=== PATIENT | male | born 1975 | race Two or more races ===

== ENCOUNTER 2017-04-29 00:31 | Inpatient (IN) | payer MEDICAID ==
[~2017-04-29] VITALS: Ht 165.1 cm; Wt 84.4 kg
--- NOTE | 2017-04-29 00:34 | NUR ---
PATIENT WALKED INTO ER STATES HAS NOT HAD DIALYSIS 1 WEEK DUE TO BEING INCARCERATED AND C/O CHEST DISCOMFORT FOR 3 DAYS, PT IS ALERT, ORIENTED X 4, NO RESP DISTRESS NOTED OR REPORTED UPON ASSESSMENT... MD AT BEDSIDE..
[2017-04-29] MEDS ORDERED: IV NORMAL SALINE 500 ML BAG IV ONE (01:00)
--- NOTE | 2017-04-29 01:18 | NUR ---
PATIENT DOSE NOT REMEMBER ANY MEDICATION HE TAKES AT HOME. PATIENT WILL HAVE FAMILY MEMBER BRING BOTTLE SOMETHING TODAY
[2017-04-29 01:31] LABS: BASOPHILS # (AUTO) 0.1 K/uL (0.0-8.0); BASOPHILS % (AUTO) 0.7 % (0.0-2.0); EOSINOPHILS # (AUTO) 0.2 K/uL (0.0-0.7); EOSINOPHILS % (AUTO) 2.2 % (0.0-7.0); HEMATOCRIT 36.9 % (40-50); HEMOGLOBIN 12.5 G/DL (14.0-18.0); LYMPHOCYTES # (AUTO) 1.6 K/UL (0.8-4.8); LYMPHOCYTES % (AUTO) 19.3 % (20.5-51.5); MEAN CORPUSCULAR HEMOGLOBIN 29.1 UUG (27.0-31.0); MEAN CORPUSCULAR HGB CONC 34 g/dL (32.0-37.0); MEAN CORPUSCULAR VOLUME 86.1 FL (82.0-92.0); MONOCYTES # (AUTO) 0.5 K/UL (0.1-1.30); MONOCYTES % (AUTO) 6.5 % (0.0-11.0); NEUTROPHILS # (AUTO) 5.7 K/UL (1.8-8.9); NEUTROPHILS % (AUTO) 71.3 % (38.5-71.5); PLATELET COUNT (AUTO) 269 K/UL (150-450); RED BLOOD CELL COUNT(AUTO) 4.29 MIL/UL (4.7-6.1); WHITE BLOOD COUNT (AUTO) 8.1 K/UL (4.0-11.2)
[2017-04-29 01:32] LABS: BILIRUBIN,DIRECT 0.1 mg/dL (0.0-0.2); BILIRUBIN,TOTAL 0.3 mg/dL (0.2-1.0); CREATININE 4.5 mg/dL (0.6-1.3); POTASSIUM 3.4 mmol/L (3.5-5.1); TOTAL PROTEIN, SERUM 7.3 g/dL (6.4-8.2)
[2017-04-29] MEDS ORDERED: ATOR10TA PO (01:52)
[2017-04-29] MEDS ORDERED: LABE200T PO (01:52)
[2017-04-29] MEDS ORDERED: PANT40TA4 PO (01:52)
[2017-04-29] MEDS ORDERED: FURO40TA5 PO (01:52)
[2017-04-29] MEDS ORDERED: DIPH25CA83 PO (01:52)
[2017-04-29] MEDS ORDERED: FOLI0.8T2 PO (01:52)
[2017-04-29] MEDS ORDERED: BENA20TA2 PO (01:52)
[2017-04-29] MEDS ORDERED: ESCI10TA PO (01:52)
[2017-04-29] MEDS ORDERED: AMLO10TA2 PO (01:52)
[2017-04-29] MEDS ORDERED: NIFEDIPINE PO (01:52)
[2017-04-29] MEDS ORDERED: DOCU100C36 PO (01:52)
[2017-04-29] MEDS ORDERED: ASPI-605 PO (01:52)
--- NOTE | 2017-04-29 01:53 | NUR ---
DAUGHTER CALLED BACK AND GAVE MEDICATION LIST OVER THE PHONE
[2017-04-29 02:00] LABS: *BILIRUBIN,URIN NEGATIVE (NEGATIVE); *BLOOD, URINE Trace-lysed (NEGATIVE); *CLARITY,URINE CLEAR (CLEAR); *COLOR,URINE YELLOW (YELLOW); *KETONES,URINE NEGATIVE (NEGATIVE); *PROTEIN,URINE 3+ (NEGATIVE); *UROBILINOGEN,URINE 0.2 E.U./dl (NORMAL); LEUKOCYTE ESTERASE ,URINE NEGATIVE (NEGATIVE); NITRITE, URINE NEGATIVE (NEGATIVE); UGLUCOSE TRACE (NEGATIVE)
[2017-04-29 02:04] LABS: BACTERIA,URINE FEW /HPF (NONE SEEN); SQUAMOUS EPITHELIAL CELL,UR FEW /HPF (NONE SEEN); WBC,URINE 0-3 /HPF (0-3)
[2017-04-29] MEDS ORDERED: ONDANSETRON 4 MG/2 ML VIAL IV PRN (02:45)
[2017-04-29] MEDS ORDERED: ACETAMINOPHEN 325 MG TABLET PO PRN (02:45)
[2017-04-29] MEDS ORDERED: HYDROCODONE/APAP 5-325MG TABLET PO PRN (02:45)
[2017-04-29] MEDS ORDERED: MAGNESIUM HYDROXIDE 30 ML LIQUID UDC PO PRN (02:45)
[2017-04-29] MEDS ORDERED: Z GUARD REMEDY PASTE 57 GM TUBE TOP PRN (02:45)
[2017-04-29 03:00] VITALS: BP 127/91
[2017-04-29 03:07] VITALS: BP 141/103
--- NOTE | 2017-04-29 03:10 | NUR ---
Pt. admitted to TELEMETRY FROM ER. RESP IS EVEN AND UNLABORED, NO ACUTE DISTRESS. Pt alert, oriented x 4. WITH IV ON L FA, PATENT AND INTACT. PT WITH ADMIT DX OF RENAL FAILURE AND HX OF HTN INSOMNIA, DEPRESSION. CALL LIGHT KEPT WITHIN REACH. WILL CONT TO MONITOR.
--- NOTE | 2017-04-29 03:20 | NUR ---
Pt. admitted to TELEMETRY , under care of Dr. CHANDAN DAVIS, Belongs List completed, Pt alert, oriented x 4, no resp distress noted or reported upon assessment...
[2017-04-29] MEDS ORDERED: ACETAMINOPHEN 325 MG TABLET ONE (04:02)
[2017-04-29] MEDS: IV D5 1/2 NS 1000 ML 1,000 ML IV PRN ×2 (04:18→21:20)
--- NOTE | 2017-04-29 07:09 | NUR ---
RES IN BED, RESP IS EVEN AND UNLABORED. NO RESP DISTRESS. ON TELE MONITORING C SR AT HR OF 74. IV FLUIDS INFUSING WELL ON R AC, SITE IS PATENT AND INTACT. CALL LIGHT KEPT WITHIN REACH. WILL CONT TO MONITOR.
--- NOTE | 2017-04-29 07:38 | NUR ---
TYLENOL WAS ADMINISTERED BY NOC NURSE, REMOVED FROM EMAR NON ADMIN
[2017-04-29] MEDS: PANTOPRAZOLE SODIUM 40 MG TABLET.DR PO SCH (08:17)
[2017-04-29 12:05] VITALS: BP 128/84
[2017-04-29 15:11] VITALS: BP 118/76
[2017-04-29 19:00] VITALS: BP 133/86
--- NOTE | 2017-04-29 19:29 | NUR ---
PT IS LAYING IN BED COMFORTABLY. NO S/S OF RESPIRATORY DISTRESS NOTED. NO PAIN NOTED. ALL SAFETY NEEDS ARE MET. IV INTACT/PATENT.
[2017-04-29 23:55] VITALS: BP 128/82
[2017-04-30 04:00] VITALS: BP 155/112
[2017-04-30 06:36] LABS: BASOPHILS # (AUTO) 0.1 K/uL (0.0-8.0); EOSINOPHILS # (AUTO) 0.3 K/uL (0.0-0.7); EOSINOPHILS % (AUTO) 3.4 % (0.0-7.0); HEMATOCRIT 38.8 % (40-50); HEMOGLOBIN 13.1 G/DL (14.0-18.0); LYMPHOCYTES # (AUTO) 1.9 K/UL (0.8-4.8); LYMPHOCYTES % (AUTO) 24.5 % (20.5-51.5); MEAN CORPUSCULAR HEMOGLOBIN 29.3 UUG (27.0-31.0); MEAN CORPUSCULAR HGB CONC 34 g/dL (32.0-37.0); MEAN CORPUSCULAR VOLUME 87.1 FL (82.0-92.0); MONOCYTES # (AUTO) 0.5 K/UL (0.1-1.30); MONOCYTES % (AUTO) 6.1 % (0.0-11.0); NEUTROPHILS # (AUTO) 4.8 K/UL (1.8-8.9); PLATELET COUNT (AUTO) 258 K/UL (150-450); RED BLOOD CELL COUNT(AUTO) 4.46 MIL/UL (4.7-6.1); WHITE BLOOD COUNT (AUTO) 7.6 K/UL (4.0-11.2)
[2017-04-30] MEDS: PANTOPRAZOLE SODIUM 40 MG TABLET.DR PO SCH (06:40)
--- NOTE | 2017-04-30 06:47 | NUR ---
nsg: pt wants ivf to be d/c. pt food and liquid intake excellent.
[2017-04-30 07:07] LABS: MAGNESIUM 1.8 mg/dL (1.8-2.4); PHOSPHOROUS 4.2 mg/dL (2.5-4.9); POTASSIUM 3.7 mmol/L (3.5-5.1)
[2017-04-30] MEDS ORDERED: AMLODIPINE 10 MG TABLET PO SCH (09:00)
[2017-04-30] MEDS ORDERED: BENAZEPRIL HCL 20 MG TABLET PO SCH (09:00)
[2017-04-30] MEDS ORDERED: ESCITALOPRAM OXALATE 10 MG TABLET PO SCH (09:00)
[2017-04-30] MEDS ORDERED: FUROSEMIDE 40 MG TABLET PO SCH (09:00)
[2017-04-30] MEDS ORDERED: DOCUSATE SODIUM 100 MG CAPSULE PO SCH (09:00)
[2017-04-30] MEDS ORDERED: FOLIC ACID/VITAMIN B COMP W-C TABLET PO SCH (09:00)
[2017-04-30] MEDS ORDERED: PANTOPRAZOLE SODIUM 40 MG TABLET.DR PO SCH (09:00)
[2017-04-30] MEDS ORDERED: ASPIRIN EC 81 MG TABLET.DR PO SCH (09:00)
[2017-04-30] MEDS ORDERED: LABETALOL HCL 200 MG TABLET PO SCH (09:00)
[2017-04-30 11:10] LABS: HEPATITIS A AB, TOTAL Positive (Negative); HEPATITIS B SURFACE AB Reactive (.)
[2017-04-30 11:19] VITALS: BP 135/87
[2017-04-30 15:04] VITALS: BP 101/55
--- NOTE | 2017-04-30 16:25 | NUR ---
PT CONTINUES TO REFUSE IV FLUIDS, INFORMED DR. THOMAS AND [facility]A [place]. OK PER BOTH.
--- NOTE | 2017-04-30 19:15 | NUR ---
UPON SIFT OF CHANGE ROUNDING, PATIENT IS AWAKE IN BED WITH FAMILY AT BEDSIDE. PATIENT IS A/O X4. PATIENT WANTS TO LEAVE AMA. CALLED OUT TO DR. THOMAS THAT PATIENT IS LEAVING AMA AND REFUSING TO STAY. PATIENT DENIES PAIN OR DISCOMFORT. ALL NEEDS ATTENDED. Addendum: 04/30/17 at 2031 by MARIE GONZALEZ LVN time clarification- 1929 and "upon shift report"
--- NOTE | 2017-04-30 19:18 | NUR ---
PT IS LAYING IN BED COMFORTABLY. PT IS CALM, ALERT AND ORIENTED. NO S/S OF RESPIRATORY DISTRESS NOTED. NO PAIN REPORTED. NO S/S OF BLEEDING NOTED. IV INTACT/PATENT. ALL SAFETY NEEDS ARE MET.
--- NOTE | 2017-04-30 20:00 | NUR ---
PATIENT LEFT AMA. DR. THOMAS NOTIFIED. ALL NEEDS ATTENDED.
[2017-04-30] MEDS ORDERED: diphenhydrAMINE 50 MG CAPSULE PO SCH (21:00)
[2017-04-30] MEDS ORDERED: ATORVASTATIN 10 MG TABLET PO SCH (21:00)
[2017-05-01 05:06] LABS: HEPATITIS Be ANTIGEN Negative (Negative)
[2017-05-01] MEDS ORDERED: AMLODIPINE 10 MG TABLET PO SCH (09:00)
[2017-05-01] MEDS ORDERED: NIFEdipine XL 60 MG TABSR PO SCH (09:00)
--- NOTE | 2017-05-04 15:12 | NUR ---
Rich [ ext. [phone]] from [facility] called and stated that they have a dialysis schedule for the patient: Tuesdays, and Saturdays at 4:30 p.m. Spoke to the patient [ ] and he stated that [facility] already called him and he is aware of the schedule.
== END 2017-04-30 19:58 | disposition left against medical advice (07) | DRG 460 ==
LOC: ER 00:36 → TELE 02:14 → MED 04-30 13:32
PROVIDERS: ADMIT Internal Medicine; ATTEND Family Medicine
PROC: 5A1D00Z (ICD-10-PCS; principal; 2017-04-29)
DX: I12.0 Hypertensive chronic kidney disease with stage 5 chronic kidney disease or end stage renal disease (principal); N18.6 End stage renal disease; E78.5 Hyperlipidemia, unspecified; E87.6 Hypokalemia; Z82.49 Family history of ischemic heart disease and other diseases of the circulatory system; Z99.2 Dependence on renal dialysis; Z87.891 Personal history of nicotine dependence; R07.9 Chest pain, unspecified
CPT/HCPCS: 36415; 70030-TC; 71010; 83690; 83735; 84100; 85025; 85730; 86705; 86706; 86708; 86803; 87350; 93005; 93307; A4663; J3490; J7040

== ENCOUNTER 2017-08-19 12:18 | Inpatient (IN) | payer MEDICAID, OTHER ==
[~2017-08-19] VITALS: Ht 165.1 cm; Wt 83.9 kg
[~2017-08-19 12:18] MED LIST: ASPI-605 PO; ATOR10TA PO; BENA20TA2 PO; DIPH25CA83 PO; DOCU100C36 PO; ESCI10TA PO; FOLI0.8T2 PO; FURO40TA5 PO; LABE200T PO; NIFEDIPINE PO; PANT40TA4 PO
--- NOTE | 2017-08-19 12:30 | NUR ---
DR MCCOY AT THE BEDSIDE FOR EVAL AND EXAM.
--- NOTE | 2017-08-19 12:34 | NUR ---
PT STATED THAT HE DOES NOT REMEMBER HIS EXACT HOME MEDICATION NAMES AND DOSAGES. DR MCCOY NOTIFIED.
[2017-08-19 12:58] LABS: CREATININE 4.4 mg/dL (0.6-1.3)
[2017-08-19 13:00] LABS: BASOPHILS % (AUTO) 0.4 % (0.0-2.0); EOSINOPHILS # (AUTO) 0.2 K/uL (0.0-0.7); EOSINOPHILS % (AUTO) 2.6 % (0.0-7.0); HEMATOCRIT 41.8 % (40-50); HEMOGLOBIN 13.9 G/DL (14.0-18.0); LYMPHOCYTES # (AUTO) 1.2 K/UL (0.8-4.8); MEAN CORPUSCULAR HEMOGLOBIN 29.8 UUG (27.0-31.0); MEAN CORPUSCULAR HGB CONC 33 g/dL (32.0-37.0); MEAN CORPUSCULAR VOLUME 89.7 FL (82.0-92.0); MONOCYTES # (AUTO) 0.4 K/UL (0.1-1.30); MONOCYTES % (AUTO) 4.6 % (0.0-11.0); NEUTROPHILS # (AUTO) 6.6 K/UL (1.8-8.9); NEUTROPHILS % (AUTO) 78.4 % (38.5-71.5); PLATELET COUNT (AUTO) 281 K/UL (150-450); RED BLOOD CELL COUNT(AUTO) 4.66 MIL/UL (4.7-6.1); WHITE BLOOD COUNT (AUTO) 8.4 K/UL (4.0-11.2)
[2017-08-19 13:14] LABS: BILIRUBIN,DIRECT 0.1 mg/dL (0.0-0.2); BILIRUBIN,TOTAL 0.3 mg/dL (0.2-1.0); TOTAL PROTEIN, SERUM 7.2 g/dL (6.4-8.2)
[2017-08-19] MEDS ORDERED: ACETAMINOPHEN 325 MG TABLET PO PRN (13:45)
[2017-08-19] MEDS ORDERED: Z GUARD REMEDY PASTE 57 GM TUBE TOP PRN (13:45)
[2017-08-19] MEDS ORDERED: hydrALAZINE HCL 20 MG/1 ML VIAL IV ONE (13:45)
[2017-08-19] MEDS ORDERED: MAGNESIUM HYDROXIDE 30 ML LIQUID UDC PO PRN (13:45)
[2017-08-19] MEDS ORDERED: ONDANSETRON 4 MG/2 ML VIAL IV PRN (13:45)
[2017-08-19] MEDS ORDERED: MORPHINE SULFATE 2 MG/1 ML DISP.SYRIN IV PRN (13:45)
[2017-08-19] MEDS ORDERED: TEMAZEPAM 7.5 MG CAPSULE PO PRN (13:45)
[2017-08-19] MEDS ORDERED: HYDROCODONE/APAP 5-325MG TABLET PO PRN (13:45)
[2017-08-19] MEDS ORDERED: METOPROLOL TARTRATE 5 MG/5 ML VIAL IVP ONE ×2 (13:45→14:03)
[2017-08-19] MEDS ORDERED: hydrALAZINE HCL 20 MG/1 ML VIAL ONE (14:03)
--- NOTE | 2017-08-19 14:04 | NUR ---
[facility] COLLECTED AND SENT TO LAB. BELONGING LIST COMPLETED AND PLACED IN THE CHART.
[2017-08-19] MEDS ORDERED: HYDROMORPHONE 1 MG/1 ML DISP.SYRIN IV PRN (14:45)
--- NOTE | 2017-08-19 14:50 | NUR ---
PATIENT ARRIVED ON TELE UNIT, PATIENT IS AMBULATORY, VITALS RECORDED, AND DIALYSIS STARTED BY DIALYSIS NURSE STEVEN.
[2017-08-19 14:55] VITALS: BP 164/107
--- NOTE | 2017-08-19 16:45 | NUR ---
DIALYSIS COMPLETE, PATIENT TOLERATED WELL. INFORMATION THAT 2 LITERS WERE REMOVED WAS OBTAINED. PATIENT IS IN BED, BED IN LOW POSITION, SIDE RAILS UP X2.
--- NOTE | 2017-08-19 18:53 | NUR ---
PATIENT CONTINUES TO EXPERIENCE MODERATE HEADACHE AFTER TYLENOL GIVEN. PATIENT REPORTED THAT HE WILL TRY TO GET SOME SLEEP, THEN WILL ASK FOR MEDS IF NEEDED LATER. PATIENT IS IN BED, BED IN LOW POSITION, SIDE RAILS UP X2.
--- NOTE | 2017-08-19 19:30 | NUR ---
RECEIVED SHIFT REPORT FROM PREVIOUS SHIFT NURSE. PATIENT WAS ASLEEP. PATIENT INTRODUCTORY INITIATED. PATIENT DOES NOT COMPLAIN OF ANY CHEST PAIN BUT HAS SLIGHT HEADACHE IN WHICH PREVIOUS SHIFT NURSE ADMINISTERED TYLENOL. BED IN LOCKED/LOW POSITION WITH SIDERAILS UP X2. WILL CONTINUE TO MONITOR. SAFETY AND COMFORT WILL BE PROVIDED THROUGHOUT SHIFT.
[2017-08-19 20:00] VITALS: BP 146/100
[2017-08-19 20:38] VITALS: BP 146/100
[2017-08-19] MEDS ORDERED: [UNRECOGNIZED DRUG - REMARK] PO SCH (21:00)
[2017-08-19] MEDS ORDERED: diphenhydrAMINE 50 MG CAPSULE PO SCH (21:00)
[2017-08-19] MEDS ORDERED: LABETALOL HCL 200 MG TABLET PO SCH (21:00)
[2017-08-19] MEDS ORDERED: ATORVASTATIN 10 MG TABLET PO SCH (21:00)
[2017-08-19] MEDS ORDERED: BENAZEPRIL HCL 20 MG TABLET PO SCH (21:00)
--- NOTE | 2017-08-19 22:35 | NUR ---
PATIENT LEFT AGAINST MEDICAL ADVICE. PATIENT VERBALIZED, "I GOT DIALYSIS TODAY, AND I WANT TO LEAVE RIGHT NOW, I CANNOT WAIT UNTIL TOMORROW. INFORMED PATIENT THAT I CANNOT DISCHARGE HIM MYSELF UNLESS I HAVE A DOCTOR'S ORDER, WHICH THE PATIENT DOES NOT HAVE AN ORDER FOR. PATIENT VERBALIZED "BUT I CAN SIGN SOME PAPER TO LEAVE RIGHT". DR. MCCANN INFORMED OF THE SITUATION AND SAID HE CAN LEAVE AGAINST MEDICAL ADVICE. PATIENT IN STABLE CONDITION, NO S/S OF DISTRESS. ID BAND TAKEN OFF OF PATIENT, BELONGINGS CHECKLIST SIGNED, IV TAKEN OUT AND AMA DOCUMENTS SIGNED BY PATIENT.
[2017-08-20] MEDS ORDERED: PANTOPRAZOLE SODIUM 40 MG TABLET.DR PO SCH (07:00)
[2017-08-20] MEDS ORDERED: NIFEdipine XL 60 MG TABSR PO SCH (09:00)
[2017-08-20] MEDS ORDERED: DOCUSATE SODIUM 100 MG CAPSULE PO SCH (09:00)
[2017-08-20] MEDS ORDERED: FOLIC ACID/VITAMIN B COMP W-C TABLET PO SCH (09:00)
[2017-08-20] MEDS ORDERED: ASPIRIN EC 81 MG TABLET.DR PO SCH (09:00)
[2017-08-20] MEDS ORDERED: ESCITALOPRAM OXALATE 10 MG TABLET PO SCH (09:00)
[2017-08-20] MEDS ORDERED: FUROSEMIDE 40 MG TABLET PO SCH (09:00)
== END 2017-08-19 22:35 | disposition left against medical advice (07) | DRG 199 ==
LOC: ER 12:25 → TELE 14:26
PROVIDERS: ADMIT Family Medicine; ATTEND Family Medicine
PROC: 5A1D70Z Performance of Urinary Filtration, Intermittent, Less than 6 Hours Per Day (ICD-10-PCS; principal; 2017-08-19)
DX: I16.0 Hypertensive urgency (principal); N18.6 End stage renal disease; I13.11 Hypertensive heart and chronic kidney disease without heart failure, with stage 5 chronic kidney disease, or end stage renal disease; Z99.2 Dependence on renal dialysis; Z91.15 Patient's noncompliance with renal dialysis; E78.5 Hyperlipidemia, unspecified; Z79.82 Long term (current) use of aspirin; Z79.899 Other long term (current) drug therapy; I25.10 Atherosclerotic heart disease of native coronary artery without angina pectoris; E87.70 Fluid overload, unspecified
CPT/HCPCS: 36415; 70030-TC; 71010; 85025; 85730; 93005; A4663; J0360; J3490

== ENCOUNTER 2017-12-09 03:42 | Emergency (ER) | payer MEDICAID, OTHER ==
[~2017-12-09] VITALS: Ht 165.1 cm; Wt 85.3 kg
[2017-12-09] MEDS ORDERED: CLONIDINE HCL 0.2 MG TABLET PO ONE (04:15)
[2017-12-09] MEDS ORDERED: CLONIDINE HCL 0.2 MG TABLET ONE (04:16)
[2017-12-09] MEDS ORDERED: ONDANSETRON HCL 4 MG TABLET ONE (04:29)
[2017-12-09] MEDS ORDERED: HYDROMORPHONE 4 MG/1 ML DISP.SYRIN ONE (04:29)
[2017-12-09] MEDS ORDERED: HYDROMORPHONE 1 MG/1 ML DISP.SYRIN IM ONE (04:30)
[2017-12-09] MEDS ORDERED: ONDANSETRON ODT 4 MG TAB.RAPDIS SL ONE (04:30)
[2017-12-09] MEDS ORDERED: LABETALOL HCL 100 MG/20 ML VIAL ONE (04:41)
[2017-12-09] MEDS ORDERED: LABETALOL HCL 100 MG/20 ML VIAL IV ONE (04:45)
--- NOTE | 2017-12-09 05:16 | NUR ---
Patient discharged to home in stable conditon. Written and verbal after care instructions given. Patient verbalizes understanding of instructions. Ambulated from Er with stable gait. All belongings with patient. patient will be driven home by his friend in a private vehicle. Peripheral IV removed prior to dischrage.
[2017-12-09 05:17] VITALS: BP 181/120
[2017-12-22] MEDS ORDERED: HYDR-548 PO (14:33)
== END 2017-12-09 05:18 | disposition home or self-care (01) ==
LOC: ER 03:46
DX: H16.8 Other keratitis (principal); I12.0 Hypertensive chronic kidney disease with stage 5 chronic kidney disease or end stage renal disease; N18.6 End stage renal disease; Z79.82 Long term (current) use of aspirin; Z79.899 Other long term (current) drug therapy
CPT/HCPCS: 96372; 96374; 99284; A4663; J1170; J3490; Q0162

== ENCOUNTER 2017-12-19 16:09 | Inpatient (IN) | payer MEDICAID, OTHER ==
[~2017-12-19] VITALS: Ht 165.1 cm; Wt 82.1 kg
[2017-12-19] MEDS ORDERED: HYDROCODONE/APAP 5-325MG TABLET ONE (17:25)
[2017-12-19] MEDS ORDERED: HYDROCODONE/APAP 5-325MG TABLET PO ONE (17:30)
[2017-12-19] MEDS ORDERED: LABE200T PO (18:27)
[2017-12-19] MEDS ORDERED: FURO40TA5 PO (18:27)
[2017-12-19] MEDS ORDERED: FOLI0.8T2 PO (18:27)
[2017-12-19] MEDS ORDERED: ASPI81TA31 PO (18:27)
[2017-12-19] MEDS ORDERED: ESCI10TA PO (18:27)
[2017-12-19] MEDS ORDERED: ATOR10TA PO (18:27)
[2017-12-19] MEDS ORDERED: BENA20TA2 PO (18:27)
[2017-12-19] MEDS ORDERED: PANT40TA4 PO (18:27)
[2017-12-19] MEDS ORDERED: DIPH25CA83 PO (18:27)
[2017-12-19] MEDS ORDERED: DOCU100C36 PO (18:27)
[2017-12-19] MEDS ORDERED: NIFE60TA69 PO (18:27)
[2017-12-19 18:35] LABS: BASOPHILS # (AUTO) 0.1 K/uL (0.0-8.0); BASOPHILS % (AUTO) 0.6 % (0.0-2.0); EOSINOPHILS # (AUTO) 0.2 K/uL (0.0-0.7); EOSINOPHILS % (AUTO) 2.5 % (0.0-7.0); HEMATOCRIT 40.2 % (36.7-47.1); HEMOGLOBIN 13.6 g/dL (12.5-16.3); LYMPHOCYTES # (AUTO) 2.6 K/uL (20.0-40.0); LYMPHOCYTES % (AUTO) 26.9 % (20.5-51.5); MEAN CORPUSCULAR HGB CONC 34 g/dL (32.5-36.3); MEAN CORPUSCULAR VOLUME 88.7 fL (73.0-96.2); MONOCYTES # (AUTO) 0.6 K/uL (2.0-10.0); MONOCYTES % (AUTO) 6.5 % (0.0-11.0); NEUTROPHILS # (AUTO) 6.2 K/uL (1.8-8.9); NEUTROPHILS % (AUTO) 63.5 % (38.5-71.5); PLATELET COUNT (AUTO) 263 K/uL (152-348); RED BLOOD CELL COUNT(AUTO) 4.53 MIL/uL (4.06-5.63); WHITE BLOOD COUNT (AUTO) 9.8 K/uL (3.6-10.2)
[2017-12-19 18:44] LABS: CREATININE 5.2 mg/dL (0.6-1.3); POTASSIUM 4.7 mmol/L (3.5-5.1)
[2017-12-19 18:50] LABS: BILIRUBIN,DIRECT 0.1 mg/dL (0.0-0.2); BILIRUBIN,TOTAL 0.3 mg/dL (0.2-1.0); TOTAL PROTEIN, SERUM 6.9 g/dL (6.4-8.2)
[2017-12-19] MEDS ORDERED: LABETALOL HCL 100 MG/20 ML VIAL IV ONE ×2 (20:00→21:00)
[2017-12-19] MEDS ORDERED: LABETALOL HCL 100 MG/20 ML VIAL ONE ×2 (20:06→20:59)
[2017-12-19] MEDS ORDERED: hydrALAZINE HCL 20 MG/1 ML VIAL ONE (21:29)
[2017-12-19] MEDS ORDERED: ONDANSETRON 4 MG/2 ML VIAL IV PRN (21:30)
[2017-12-19] MEDS ORDERED: HYDROCODONE/APAP 10-325 MG TABLET PO PRN (21:30)
[2017-12-19] MEDS ORDERED: ACETAMINOPHEN 325 MG TABLET PO PRN (21:30)
[2017-12-19] MEDS ORDERED: BENAZEPRIL HCL 20 MG TABLET PO ONE (21:30)
[2017-12-19] MEDS ORDERED: hydrALAZINE HCL 50 MG TABLET PO PRN (21:30)
[2017-12-19] MEDS ORDERED: hydrALAZINE HCL 20 MG/1 ML VIAL IV PRN (21:30)
[2017-12-19] MEDS ORDERED: LABETALOL HCL 200 MG TABLET PO ONE (21:45)
[2017-12-19 22:00] VITALS: BP 156/96
[2017-12-19] MEDS: MORPHINE SULFATE 4 MG/1 ML DISP.SYRIN IV PRN (22:18)
[2017-12-20] VITALS: BP 145/86
[2017-12-20 04:00] VITALS: BP 150/67
[2017-12-20] MEDS: MORPHINE SULFATE 4 MG/1 ML DISP.SYRIN IV PRN (04:19)
[2017-12-20] MEDS: PANTOPRAZOLE SODIUM 40 MG TABLET.DR PO SCH (06:26)
[2017-12-20 06:57] LABS: BASOPHILS # (AUTO) 0.1 K/uL (0.0-8.0); BASOPHILS % (AUTO) 0.5 % (0.0-2.0); EOSINOPHILS # (AUTO) 0.3 K/uL (0.0-0.7); EOSINOPHILS % (AUTO) 2.9 % (0.0-7.0); HEMATOCRIT 38.1 % (36.7-47.1); HEMOGLOBIN 12.8 g/dL (12.5-16.3); LYMPHOCYTES # (AUTO) 2.7 K/uL (20.0-40.0); LYMPHOCYTES % (AUTO) 27.7 % (20.5-51.5); MEAN CORPUSCULAR HEMOGLOBIN 29.7 uug (23.8-33.4); MEAN CORPUSCULAR HGB CONC 34 g/dL (32.5-36.3); MEAN CORPUSCULAR VOLUME 88.8 fL (73.0-96.2); MONOCYTES # (AUTO) 0.7 K/uL (2.0-10.0); MONOCYTES % (AUTO) 7.6 % (0.0-11.0); NEUTROPHILS % (AUTO) 61.3 % (38.5-71.5); PLATELET COUNT (AUTO) 238 K/uL (152-348); RED BLOOD CELL COUNT(AUTO) 4.29 MIL/uL (4.06-5.63); WHITE BLOOD COUNT (AUTO) 9.8 K/uL (3.6-10.2)
[2017-12-20 07:47] LABS: BILIRUBIN,TOTAL 0.2 mg/dL (0.2-1.0); CREATININE 5.1 mg/dL (0.6-1.3); MAGNESIUM 1.9 mg/dL (1.8-2.4); PHOSPHOROUS 4.3 mg/dL (2.5-4.9); POTASSIUM 4.3 mmol/L (3.5-5.1); TOTAL PROTEIN, SERUM 6.1 g/dL (6.4-8.2)
[2017-12-20] MEDS: ASPIRIN 81 MG TAB.CHEW PO SCH (08:57)
[2017-12-20] MEDS: FUROSEMIDE 40 MG TABLET PO SCH (08:57)
[2017-12-20] MEDS: DOCUSATE SODIUM 100 MG CAPSULE PO SCH (08:57)
[2017-12-20] MEDS: ESCITALOPRAM OXALATE 10 MG TABLET PO SCH (08:57)
[2017-12-20] MEDS: BENAZEPRIL HCL 20 MG TABLET PO SCH ×2 (08:57→21:02)
[2017-12-20] MEDS: FOLIC ACID/VITAMIN B COMP W-C TABLET PO SCH (08:57)
[2017-12-20] MEDS: LABETALOL HCL 200 MG TABLET PO SCH ×2 (08:58→17:40)
[2017-12-20] MEDS: NIFEdipine XL 60 MG TABSR PO SCH (08:58)
[2017-12-20] MEDS ORDERED: PANTOPRAZOLE SODIUM 40 MG TABLET.DR PO SCH (09:00)
[2017-12-20 11:30] VITALS: BP 163/100
[2017-12-20] MEDS ORDERED: ALBUTEROL SULFATE 2.5 MG/3 ML NEBU NEB PRN (16:45)
[2017-12-20 20:23] VITALS: BP 115/70
[2017-12-20] MEDS: ATORVASTATIN 10 MG TABLET PO SCH (21:02)
[2017-12-20] MEDS: diphenhydrAMINE 50 MG CAPSULE PO SCH (21:02)
[2017-12-21] MEDS: PANTOPRAZOLE SODIUM 40 MG TABLET.DR PO SCH (05:49)
[2017-12-21] MEDS: MORPHINE SULFATE 4 MG/1 ML DISP.SYRIN IV PRN ×2 (05:49→09:56)
[2017-12-21 06:55] VITALS: BP 153/90
[2017-12-21] MEDS: ESCITALOPRAM OXALATE 10 MG TABLET PO SCH (09:22)
[2017-12-21] MEDS: BENAZEPRIL HCL 20 MG TABLET PO SCH ×2 (09:22→21:00)
[2017-12-21] MEDS: FUROSEMIDE 40 MG TABLET PO SCH (09:22)
[2017-12-21] MEDS: FOLIC ACID/VITAMIN B COMP W-C TABLET PO SCH (09:22)
[2017-12-21] MEDS: NIFEdipine XL 60 MG TABSR PO SCH (09:23)
[2017-12-21] MEDS: LABETALOL HCL 200 MG TABLET PO SCH ×2 (09:23→16:34)
[2017-12-21] MEDS: ASPIRIN 81 MG TAB.CHEW PO SCH (09:23)
[2017-12-21] MEDS: DOCUSATE SODIUM 100 MG CAPSULE PO SCH (09:23)
[2017-12-21 11:50] VITALS: BP 148/100
[2017-12-21 15:13] VITALS: BP 110/60
[2017-12-21 20:00] VITALS: BP 130/81
[2017-12-21] MEDS: ATORVASTATIN 10 MG TABLET PO SCH (21:00)
[2017-12-21] MEDS: diphenhydrAMINE 50 MG CAPSULE PO SCH (21:22)
[2017-12-22] MEDS: MORPHINE SULFATE 4 MG/1 ML DISP.SYRIN IV PRN ×3 (01:13→09:22)
[2017-12-22 04:51] VITALS: BP 144/90
[2017-12-22] MEDS: PANTOPRAZOLE SODIUM 40 MG TABLET.DR PO SCH (06:02)
[2017-12-22 07:02] LABS: BASOPHILS # (AUTO) 0.1 K/uL (0.0-8.0); BASOPHILS % (AUTO) 0.5 % (0.0-2.0); EOSINOPHILS # (AUTO) 0.2 K/uL (0.0-0.7); EOSINOPHILS % (AUTO) 2.6 % (0.0-7.0); HEMATOCRIT 40.2 % (36.7-47.1); HEMOGLOBIN 13.6 g/dL (12.5-16.3); LYMPHOCYTES # (AUTO) 2.2 K/uL (20.0-40.0); LYMPHOCYTES % (AUTO) 23.8 % (20.5-51.5); MEAN CORPUSCULAR HEMOGLOBIN 29.8 uug (23.8-33.4); MEAN CORPUSCULAR HGB CONC 34 g/dL (32.5-36.3); MEAN CORPUSCULAR VOLUME 88.3 fL (73.0-96.2); MONOCYTES # (AUTO) 0.8 K/uL (2.0-10.0); MONOCYTES % (AUTO) 8.3 % (0.0-11.0); NEUTROPHILS % (AUTO) 64.8 % (38.5-71.5); PLATELET COUNT (AUTO) 233 K/uL (152-348); RED BLOOD CELL COUNT(AUTO) 4.55 MIL/uL (4.06-5.63); WHITE BLOOD COUNT (AUTO) 9.3 K/uL (3.6-10.2)
[2017-12-22 07:06] LABS: CREATININE 5.5 mg/dL (0.6-1.3); MAGNESIUM 1.9 mg/dL (1.8-2.4); PHOSPHOROUS 4.8 mg/dL (2.5-4.9); POTASSIUM 4.5 mmol/L (3.5-5.1)
[2017-12-22] MEDS: NIFEdipine XL 60 MG TABSR PO SCH (09:00)
[2017-12-22] MEDS: LABETALOL HCL 200 MG TABLET PO SCH (09:00)
[2017-12-22] MEDS: BENAZEPRIL HCL 20 MG TABLET PO SCH (09:00)
[2017-12-22] MEDS: FUROSEMIDE 40 MG TABLET PO SCH (09:00)
[2017-12-22] MEDS: ASPIRIN 81 MG TAB.CHEW PO SCH (09:17)
[2017-12-22] MEDS: DOCUSATE SODIUM 100 MG CAPSULE PO SCH (09:17)
[2017-12-22] MEDS: ESCITALOPRAM OXALATE 10 MG TABLET PO SCH (09:18)
[2017-12-22] MEDS: FOLIC ACID/VITAMIN B COMP W-C TABLET PO SCH (09:18)
[2017-12-22 11:24] VITALS: BP 137/86
[2017-12-22] MEDS ORDERED: HYDR-548 PO (14:33)
[2017-12-22 15:21] VITALS: BP 141/90
[2017-12-24 00:14] LABS: *GC NAA Negative (Negative); *TRIC.VAG. NAA Negative (Negative)
== END 2017-12-22 16:05 | disposition home or self-care (01) | DRG 384 ==
LOC: ER 16:19 → MED 20:57 → TELE 21:45 → MED 12-20 09:17
PROVIDERS: ADMIT Internal Medicine; ATTEND Internal Medicine
PROC: 5A1D70Z Performance of Urinary Filtration, Intermittent, Less than 6 Hours Per Day (ICD-10-PCS; principal; 2017-12-20)
DX: S70.02XA Contusion of left hip, initial encounter (principal); I12.0 Hypertensive chronic kidney disease with stage 5 chronic kidney disease or end stage renal disease; N18.6 End stage renal disease; M79.652 Pain in left thigh; W01.0XXA Fall on same level from slipping, tripping and stumbling without subsequent striking against object, initial encounter; Y92.89 Other specified places as the place of occurrence of the external cause; Z99.2 Dependence on renal dialysis; R36.1 Hematospermia; Z74.09 Other reduced mobility; E78.5 Hyperlipidemia, unspecified; E66.9 Obesity, unspecified; Z68.30 Body mass index [BMI] 30.0-30.9, adult; Z79.82 Long term (current) use of aspirin; Z79.899 Other long term (current) drug therapy; M89.9 Disorder of bone, unspecified; F32.9 Major depressive disorder, single episode, unspecified; R74.8 Abnormal levels of other serum enzymes; R26.2 Difficulty in walking, not elsewhere classified; D64.9 Anemia, unspecified
CPT/HCPCS: 36415; 70030-TC; 71045; 73502; 73551; 73700; 83735; 84100; 85025; 85730; 87491; 93005; A4663; J0360; J2270; J3490; Q0163

== ENCOUNTER 2018-04-02 00:14 | Inpatient (IN) | payer MEDICAID ==
[~2018-04-02] VITALS: Ht 167.6 cm; Wt 83.0 kg
[~2018-04-02 00:14] MED LIST changes: -ASPI-605 PO; +ASPI81TA31 PO; +HYDR-548 PO; +NIFE60TA69 PO; -NIFEDIPINE PO
[2018-04-02] MEDS ORDERED: LABETALOL HCL 100 MG/20 ML VIAL IV ONE ×3 (00:45→01:30)
[2018-04-02 00:50] LABS: CREATININE 4.8 mg/dL (0.6-1.3); POTASSIUM 4.5 mmol/L (3.5-5.1)
[2018-04-02] MEDS ORDERED: LABETALOL HCL 100 MG/20 ML VIAL ONE (00:52)
[2018-04-02 00:53] LABS: BASOPHILS # (AUTO) 0.1 K/uL (0.0-8.0); BASOPHILS % (AUTO) 0.9 % (0.0-2.0); EOSINOPHILS # (AUTO) 0.3 K/uL (0.0-0.7); EOSINOPHILS % (AUTO) 3.5 % (0.0-7.0); HEMATOCRIT 41.6 % (36.7-47.1); HEMOGLOBIN 14.7 g/dL (12.5-16.3); LYMPHOCYTES # (AUTO) 2.3 K/uL (20.0-40.0); LYMPHOCYTES % (AUTO) 27.5 % (20.5-51.5); MEAN CORPUSCULAR HEMOGLOBIN 31.7 uug (23.8-33.4); MEAN CORPUSCULAR HGB CONC 35 g/dL (32.5-36.3); MONOCYTES # (AUTO) 0.7 K/uL (2.0-10.0); MONOCYTES % (AUTO) 8.3 % (0.0-11.0); NEUTROPHILS # (AUTO) 4.9 K/uL (1.8-8.9); NEUTROPHILS % (AUTO) 59.8 % (38.5-71.5); PLATELET COUNT (AUTO) 310 K/uL (152-348); RED BLOOD CELL COUNT(AUTO) 4.63 MIL/uL (4.06-5.63); WHITE BLOOD COUNT (AUTO) 8.2 K/uL (3.6-10.2)
[2018-04-02 01:04] LABS: BILIRUBIN,DIRECT 0.1 mg/dL (0.0-0.2); BILIRUBIN,TOTAL 0.3 mg/dL (0.2-1.0); TOTAL PROTEIN, SERUM 6.8 g/dL (6.4-8.2)
[2018-04-02] MEDS ORDERED: ALPR1TAB7 PO (01:12)
--- NOTE | 2018-04-02 01:40 | NUR ---
PAGED EPPIC PANEL DR MCCOY REQUESTED. WAITING FOR WM REINOSO NP TO CALL BACK
--- NOTE | 2018-04-02 01:56 | NUR ---
SIOMARA MD on phone with panel .
[2018-04-02] MEDS ORDERED: hydrALAZINE HCL 20 MG/1 ML VIAL IV ONE (02:00)
--- NOTE | 2018-04-02 02:00 | NUR ---
Report given to Dejan WALLS on Telemetry
[2018-04-02] MEDS ORDERED: hydrALAZINE HCL 20 MG/1 ML VIAL ONE ×2 (02:04→02:25)
[2018-04-02] MEDS ORDERED: hydrALAZINE HCL 20 MG/1 ML VIAL IV STA (02:21)
[2018-04-02] MEDS ORDERED: LABETALOL HCL 100 MG/20 ML VIAL IV STA (02:21)
[2018-04-02] MEDS ORDERED: Z GUARD REMEDY PASTE 57 GM TUBE TOP PRN (02:30)
[2018-04-02] MEDS ORDERED: MAGNESIUM HYDROXIDE 30 ML LIQUID UDC PO PRN (02:30)
[2018-04-02] MEDS ORDERED: ONDANSETRON 4 MG/2 ML VIAL IV PRN (02:30)
[2018-04-02] MEDS ORDERED: HYDROCODONE/APAP 5-325MG TABLET PO PRN (02:30)
--- NOTE | 2018-04-02 02:40 | NUR ---
IN FROM ER VIA [facility], 42 YEAR OLD MALE, ADMITTED TO TELEMETRY, DX OF HYPERTENSIVE URGENCY. HEAD GRINDER APPLIED - ON SINUS RHYTHM WITH HR OF 87. PATIENT ORIENTED X3. NO SOB AND DENIES CHEST PAIN. INITIAL ASSESSMENT DONE. HISTORY PROVIDED BY PATIENT. IVF ON RIGHT AC, PATENT AND INTACT. PERMACATH PRESENT ON R UPPER CHEST. SAFETY MEASURES INITIATED. PLACED CALL LIGHT WITHIN REACH. WILL CONTINUE TO MONITOR.
--- NOTE | 2018-04-02 02:43 | NUR ---
Pt. admitted to Telemetry , under care of Gurpreet Taipa DATABASE MARKETING SPECIALIST Belongs List completed
[2018-04-02 03:00] VITALS: BP 149/77
[2018-04-02] MEDS: PANTOPRAZOLE SODIUM 40 MG TABLET.DR PO SCH (05:53)
--- NOTE | 2018-04-02 07:00 | NUR ---
RECEIVED PATIENT AWAKE AND VERBALLY RESPONSIVE WITH ON GOING HD TOLERATING FAIRLY. CLOSELY OBSERVE
--- NOTE | 2018-04-02 07:25 | NUR ---
PATIENT REMAINED RESTED AND COMFORTABLE. ON TELE SINUS RHYTHM WITH HR OF 84. NO SIGN OF RESPIRATORY DISTRESS.
--- NOTE | 2018-04-02 08:00 | NUR ---
hemodialysis completed patient tolerated well
[2018-04-02] MEDS ORDERED: ALTEPLASE 2 MG VIAL IVP ONE (08:15)
[2018-04-02] MEDS: LABETALOL HCL 200 MG TABLET PO SCH ×2 (08:49→16:35)
[2018-04-02] MEDS: BENAZEPRIL HCL 20 MG TABLET PO SCH ×2 (08:49→16:34)
[2018-04-02] MEDS: FOLIC ACID/VITAMIN B COMP W-C TABLET PO SCH (08:49)
[2018-04-02] MEDS: DOCUSATE SODIUM 100 MG CAPSULE PO SCH (08:50)
[2018-04-02] MEDS: NIFEdipine XL 60 MG TABSR PO SCH (08:50)
[2018-04-02] MEDS: ESCITALOPRAM OXALATE 10 MG TABLET PO SCH (08:50)
[2018-04-02] MEDS ORDERED: PANTOPRAZOLE SODIUM 40 MG TABLET.DR PO SCH (09:00)
[2018-04-02] MEDS: ASPIRIN 81 MG TAB.CHEW PO SCH (10:18)
[2018-04-02] MEDS: ACETAMINOPHEN 325 MG TABLET PO PRN (11:05)
[2018-04-02] MEDS ORDERED: MORPHINE SULFATE 2 MG/1 ML DISP.SYRIN IV PRN (11:15)
[2018-04-02 11:32] VITALS: BP 144/90
[2018-04-02] MEDS: MORPHINE SULFATE 4 MG/1 ML DISP.SYRIN IV PRN ×2 (11:40→16:35)
--- NOTE | 2018-04-02 12:00 | NUR ---
RESTING IN ROOM MOST OF THE TIME NO SOB BUT C/O DUNAWAY. PRN MORPHINE GIVEN WITH TEMPORARY RELIEF. VOMITED X1 RELIVED WITH ZOFRAN. SR ON MONITOR
[2018-04-02 15:34] VITALS: BP 131/84
--- NOTE | 2018-04-02 18:21 | NUR ---
CONTINUE WITH PAIN MANAGEMENT. C/O DUNAWAY RELIEVED WITH MORPHINE
[2018-04-02 19:00] VITALS: BP 118/74
[2018-04-02] MEDS: diphenhydrAMINE 50 MG CAPSULE PO SCH (20:54)
[2018-04-02] MEDS: ATORVASTATIN 10 MG TABLET PO SCH ×2 (20:55→20:56)
[2018-04-02] MEDS ORDERED: [UNRECOGNIZED DRUG - REMARK] PO SCH (21:00)
[2018-04-03] VITALS: BP 114/68
[2018-04-03 04:00] VITALS: BP 120/68
--- NOTE | 2018-04-03 06:33 | NUR ---
PT SLEPT INTERMITTENTLY THROUGH THE NIGHT AND WAS EASILY AWOKEN, PT COMPLAINED OF PAIN AT START OF SHIFT, PAIN MEDICATION HAD RECENTLY GIVEN, PT DENIED HAVING ANY CHEST PAIN, STILL HAD SLIGHT HEADACHE BUT NO PAIN MEDICATION REQUESTED. PT DENIES HAVING ANY DIFFICULTY BREATHING. ALL NEEDS MET, SAFETY MEASURES ARE IN PLACE, CALL LIGHT WITHIN REACH.
[2018-04-03] MEDS: PANTOPRAZOLE SODIUM 40 MG TABLET.DR PO SCH (06:55)
[2018-04-03] MEDS: DOCUSATE SODIUM 100 MG CAPSULE PO SCH (08:21)
[2018-04-03] MEDS: ASPIRIN 81 MG TAB.CHEW PO SCH (08:22)
[2018-04-03] MEDS: NIFEdipine XL 60 MG TABSR PO SCH (08:22)
[2018-04-03] MEDS: FOLIC ACID/VITAMIN B COMP W-C TABLET PO SCH (08:22)
[2018-04-03] MEDS: BENAZEPRIL HCL 20 MG TABLET PO SCH ×2 (08:22→16:11)
[2018-04-03] MEDS: ESCITALOPRAM OXALATE 10 MG TABLET PO SCH (08:23)
[2018-04-03] MEDS: LABETALOL HCL 200 MG TABLET PO SCH ×2 (08:23→16:11)
--- NOTE | 2018-04-03 09:15 | NUR ---
HEMODIALYSIS STARTED AT BEDSIDE BY HD NURSE CLOSELY MONITORED
[2018-04-03 09:31] LABS: BASOPHILS # (AUTO) 0.1 K/uL (0.0-8.0); EOSINOPHILS # (AUTO) 0.3 K/uL (0.0-0.7); EOSINOPHILS % (AUTO) 3.8 % (0.0-7.0); HEMATOCRIT 37.6 % (36.7-47.1); HEMOGLOBIN 12.8 g/dL (12.5-16.3); LYMPHOCYTES # (AUTO) 2.2 K/uL (20.0-40.0); LYMPHOCYTES % (AUTO) 26.9 % (20.5-51.5); MEAN CORPUSCULAR HEMOGLOBIN 31.3 uug (23.8-33.4); MEAN CORPUSCULAR HGB CONC 34 g/dL (32.5-36.3); MEAN CORPUSCULAR VOLUME 91.6 fL (73.0-96.2); MONOCYTES # (AUTO) 0.5 K/uL (2.0-10.0); MONOCYTES % (AUTO) 6.5 % (0.0-11.0); NEUTROPHILS # (AUTO) 5.1 K/uL (1.8-8.9); NEUTROPHILS % (AUTO) 61.8 % (38.5-71.5); PLATELET COUNT (AUTO) 273 K/uL (152-348); WHITE BLOOD COUNT (AUTO) 8.3 K/uL (3.6-10.2)
[2018-04-03 09:41] LABS: CREATININE 5.2 mg/dL (0.6-1.3); MAGNESIUM 1.7 mg/dL (1.8-2.4); POTASSIUM 4.1 mmol/L (3.5-5.1)
[2018-04-03 10:04] LABS: THYROID STIMULATING HORMONE 0.895 mIU/mL (0.358-3.740)
--- NOTE | 2018-04-03 11:15 | NUR ---
HD COMPLETED PATIENT TOLERATED WELL
[2018-04-03 11:46] VITALS: BP 111/66
--- NOTE | 2018-04-03 12:13 | NUR ---
RESTING COMFORTABLY IN BED NO SIGNS OF PAIN OR DISTRESS
[2018-04-03] MEDS: ACETAMINOPHEN 325 MG TABLET PO PRN (16:12)
[2018-04-03 16:14] VITALS: BP 117/69
--- NOTE | 2018-04-03 18:51 | NUR ---
NO ACUTE CHANGE DENIES PAIN OR SOB
[2018-04-03 19:00] VITALS: BP 124/67
--- NOTE | 2018-04-03 19:30 | NUR ---
PT IN ROOM ALERT AWAKE IN NO ACUTE DISTRESS. ABLE TO MAKE NEEDS KNOWN. DENIES ANY PAIN OR SOB. NO C/O HEADACHES OR DISCOMFORT. STATES HE DOES NOT WANT HIS ROUTINE BENADRYL HS. SUPERINTENDENT BOARD MILL SINUS RHYTHM WITH HR 76 BPM. CALL LIGHT WITHIN REACH. WILL CONTINUE TO MONITOR.
[2018-04-03] MEDS: diphenhydrAMINE 50 MG CAPSULE PO SCH (20:32)
[2018-04-04] VITALS: BP 144/81
--- NOTE | 2018-04-04 01:30 | NUR ---
PT ASLEEP AT THIS TIME. SINUS RHYTHM NOTED ON TYPESETTING SUPERVISOR. WILL CONTINUE TO MONITOR.
[2018-04-04 04:00] VITALS: BP 150/91
--- NOTE | 2018-04-04 06:00 | NUR ---
PT IN ROOM ABLE TO SLEEP WITHOUT DIFFICULTY OVERNIGHT. NO C/O ANY PAIN OR DISCOMFORT. NO EPISODES OF HEADACHES OR DIZZINESS. ABLE TO MAKE NEEDS KNOWN. BP 150/91. REFUSING LAB DRAWS THIS AM AND STATES HE WANTS HIS MORNING MEDS AND BLOOD DRAWN TOWARDS BREAKFAST. WILL CONTINUE TO MONITOR. CALL LIGHT PLACED WITHIN REACH. EXPERIMENTAL PHYSICIST SHOWING SINUS RHYTHM.
[2018-04-04] MEDS: ESCITALOPRAM OXALATE 10 MG TABLET PO SCH (08:02)
[2018-04-04] MEDS: FOLIC ACID/VITAMIN B COMP W-C TABLET PO SCH (08:02)
[2018-04-04] MEDS: DOCUSATE SODIUM 100 MG CAPSULE PO SCH (08:02)
[2018-04-04] MEDS: BENAZEPRIL HCL 20 MG TABLET PO SCH (08:03)
[2018-04-04] MEDS: LABETALOL HCL 200 MG TABLET PO SCH (08:03)
[2018-04-04] MEDS: ASPIRIN 81 MG TAB.CHEW PO SCH (08:03)
[2018-04-04 11:38] VITALS: BP 127/73
[2018-04-04] MEDS: PANTOPRAZOLE SODIUM 40 MG TABLET.DR PO SCH (11:48)
--- NOTE | 2018-04-04 13:28 | NUR ---
DISCHARGE INSTRUCTIONS GIVEN TO PATIENT. Pt verbalized understanding. Pt is no acute distress. Pt to f/u with PMD within 1 week and f/u with his vaccinations. Discussed home medications and it's side effects. IV d/c. Pt signed valuables.
== END 2018-04-04 13:30 | disposition home or self-care (01) | DRG 199 ==
LOC: ER 00:18 → TELE 02:00 → MED 04-04 10:00
PROVIDERS: ADMIT Registered Nurse; ATTEND Nurse Practitioner Acute Care
PROC: 5A1D70Z Performance of Urinary Filtration, Intermittent, Less than 6 Hours Per Day (ICD-10-PCS; principal; 2018-04-02)
DX: I16.0 Hypertensive urgency (principal); I21.A1 Myocardial infarction type 2; N18.6 End stage renal disease; N25.0 Renal osteodystrophy; E44.1 Mild protein-calorie malnutrition; I13.11 Hypertensive heart and chronic kidney disease without heart failure, with stage 5 chronic kidney disease, or end stage renal disease; Z99.2 Dependence on renal dialysis; Z91.15 Patient's noncompliance with renal dialysis; Z79.82 Long term (current) use of aspirin; Z79.899 Other long term (current) drug therapy; F17.210 Nicotine dependence, cigarettes, uncomplicated; E78.5 Hyperlipidemia, unspecified; Z68.29 Body mass index [BMI] 29.0-29.9, adult; Z59.0 Homelessness; F32.9 Major depressive disorder, single episode, unspecified; E66.9 Obesity, unspecified; D64.9 Anemia, unspecified
CPT/HCPCS: 36415; 70030-TC; 71045; 83605; 83735; 84100; 84443; 85018; 85025; 85730; 87040; 93005; 93307; A4663; J0360; J2270; J2405; J2997; J3490; Q0163

== ENCOUNTER 2018-04-19 10:11 | Inpatient (IN) | payer MEDICAID ==
[~2018-04-19] VITALS: Ht 165.1 cm; Wt 80.3 kg
[~2018-04-19 10:11] MED LIST changes: +ALPR1TAB7 PO; -ATOR10TA PO; -BENA20TA2 PO; +BENA20TA9 PO; -FURO40TA5 PO; -LABE200T PO; +LABE200T5 PO; -NIFE60TA69 PO
--- NOTE | 2018-04-19 10:25 | NUR ---
PT.C/O ON CHEST PAIN FOR LAST 5 HR.TOLD THAT SKIP HD FOR 1 WEAK.WAS SEEN BY WITH NEW ORDERS.
[2018-04-19] MEDS ORDERED: CALCIUM CHLORIDE 1 GM/10 ML DISP.SYRIN IVP ONE ×2 (10:30→10:34)
[2018-04-19] MEDS ORDERED: ASPIRIN 325 MG TABLET PO ONE (10:30)
[2018-04-19] MEDS ORDERED: NITROGLYCERIN 0.4 MG/TAB BOTTLE SL ONE ×2 (10:30→10:34)
[2018-04-19] MEDS ORDERED: ASPIRIN 325 MG TABLET ONE (10:34)
[2018-04-19] MEDS ORDERED: ONDANSETRON 4 MG/2 ML VIAL ONE (10:38)
[2018-04-19] MEDS ORDERED: ONDANSETRON 4 MG/2 ML VIAL IV ONE (10:45)
[2018-04-19 10:49] LABS: BASOPHILS # (AUTO) 0.1 K/uL (0.0-8.0); BASOPHILS % (AUTO) 1.1 % (0.0-2.0); EOSINOPHILS # (AUTO) 0.1 K/uL (0.0-0.7); EOSINOPHILS % (AUTO) 1.2 % (0.0-7.0); HEMATOCRIT 31.3 % (36.7-47.1); HEMOGLOBIN 10.6 g/dL (12.5-16.3); LYMPHOCYTES # (AUTO) 1.6 K/uL (20.0-40.0); LYMPHOCYTES % (AUTO) 13.3 % (20.5-51.5); MEAN CORPUSCULAR HEMOGLOBIN 30.8 uug (23.8-33.4); MEAN CORPUSCULAR HGB CONC 34 g/dL (32.5-36.3); MEAN CORPUSCULAR VOLUME 91.1 fL (73.0-96.2); MONOCYTES # (AUTO) 0.9 K/uL (2.0-10.0); MONOCYTES % (AUTO) 7.1 % (0.0-11.0); NEUTROPHILS # (AUTO) 9.5 K/uL (1.8-8.9); NEUTROPHILS % (AUTO) 77.3 % (38.5-71.5); PLATELET COUNT (AUTO) 549 K/uL (152-348); RED BLOOD CELL COUNT(AUTO) 3.44 MIL/uL (4.06-5.63); WHITE BLOOD COUNT (AUTO) 12.3 K/uL (3.6-10.2)
--- NOTE | 2018-04-19 10:54 | NUR ---
FAMILY AT BEDSIDE,UPDATED WITH PT.CONDITION AND PLAN OF CARE,PT.DENIES ANY SOB OR CHEST PAIN AT PRESENT TIME.
[2018-04-19 10:59] LABS: POTASSIUM 5.8 mmol/L (3.5-5.1)
[2018-04-19 11:11] LABS: BILIRUBIN,DIRECT 0.1 mg/dL (0.0-0.2); BILIRUBIN,TOTAL 0.4 mg/dL (0.2-1.0); TOTAL PROTEIN, SERUM 7.7 g/dL (6.4-8.2)
--- NOTE | 2018-04-19 11:20 | NUR ---
CALL BACK WITH ORDER TO ADMIT PT.TO TELE.
--- NOTE | 2018-04-19 11:51 | NUR ---
SBAR REPORT GIVEN TO COLLIN/RN.
--- NOTE | 2018-04-19 12:18 | NUR ---
Received pt via madhavi accompanied by ER nurse.
[2018-04-19 12:50] VITALS: BP 146/91
--- NOTE | 2018-04-19 13:31 | NUR ---
Admitting Dr aware of pt.'s arrival to the tele/Med-Surg unit, waiting for orders
--- NOTE | 2018-04-19 15:27 | NUR ---
Second call placed for admitting orders to the office of Dr Saucedo. Waiting for orders
[2018-04-19 15:47] VITALS: BP 144/87
--- NOTE | 2018-04-19 16:15 | NUR ---
Dr Saucedo called back and stated pt is EPIC, called Dr Mendoza and will sampler pickup the pt. Waiting for orders
[2018-04-19] MEDS: BENAZEPRIL HCL 20 MG TABLET PO SCH (17:45)
[2018-04-19] MEDS ORDERED: HYDROCODONE/APAP 10-325 MG TABLET PO PRN (17:45)
[2018-04-19] MEDS ORDERED: Medication Not On Formulary EA (Alprazolam (Xanax) 1 MG) PO PRN (17:45)
--- NOTE | 2018-04-19 17:55 | NUR ---
Pt is about to get dialysis. Scheduled BP Meds will be held
[2018-04-19] MEDS ORDERED: NITROGLYCERIN 0.4 MG/TAB BOTTLE SL PRN (18:00)
[2018-04-19] MEDS ORDERED: ACETAMINOPHEN 325 MG TABLET PO PRN (18:00)
[2018-04-19] MEDS ORDERED: ONDANSETRON 4 MG/2 ML VIAL IV PRN (18:00)
--- NOTE | 2018-04-19 18:53 | NUR ---
Lotensin not given. Pt is getting dialysis
--- NOTE | 2018-04-19 19:07 | NUR ---
Orders placed by Dr. Mendoza. Pt has been compliant with nursing care. Pt is on dialysis right now. No immediate s/s of SOB, or distress.
--- NOTE | 2018-04-19 20:00 | NUR ---
PATIENT IS AWAKE IN BED, AAOX3 CURRENTLY GETTING DIALYSIS. DENIES PAIN OR ANY DISTRESS AT PRESENT. SAFETY MEASURES IN PLACE, CALL LIGHT LEFT WITHIN PATIENT'S REACH.
--- NOTE | 2018-04-19 20:15 | NUR ---
DIALYSIS COMPLETE WITH 2 LITERS OUTPUT
[2018-04-19] MEDS: DOCUSATE SODIUM 100 MG CAPSULE PO SCH (20:18)
[2018-04-19] MEDS: diphenhydrAMINE 50 MG CAPSULE PO SCH (20:18)
[2018-04-19] MEDS: LABETALOL HCL 200 MG TABLET PO SCH (20:19)
[2018-04-19] MEDS ORDERED: CLONIDINE HCL 0.1 MG TABLET PO PRN (20:30)
[2018-04-19] MEDS ORDERED: [UNRECOGNIZED DRUG - REMARK] PO SCH (21:00)
[2018-04-20] VITALS: BP 141/95
[2018-04-20] MEDS: MORPHINE SULFATE 2 MG/1 ML DISP.SYRIN IV PRN (00:36)
[2018-04-20 04:00] VITALS: BP 163/111
[2018-04-20] MEDS: PANTOPRAZOLE SODIUM 40 MG TABLET.DR PO SCH (06:14)
[2018-04-20] MEDS: ALPRAZOLAM 0.5 MG TABLET PO PRN ×2 (06:15→19:45)
--- NOTE | 2018-04-20 06:35 | NUR ---
PATIENT SLEPT WELL MOST OF THE SHIFT, DENIES PAIN OR ANY DISTRESS AT PRESENT. PRN BP MEDS GIVEN ORDERED. PATIENT REFUSING LAB TO DRAW HIS BLOOD STATING THAT DIALYSIS NURSE TOLD HIM BLOOD WILL BE DRAW FROM HIS PERMACATH. EXPLAINED TO PATIENT THAT WE NEED MD ORDERS TO DRAW BLOOD FROM HIS PERMACATH .SAFETY MEASURES MAINTAINED AT ALL TIMES. CALL LIGHT LEFT WITHIN PATIENT'S REACH
[2018-04-20 06:57] LABS: BASOPHILS # (AUTO) 0.2 K/uL (0.0-8.0); BASOPHILS % (AUTO) 1.8 % (0.0-2.0); EOSINOPHILS # (AUTO) 0.1 K/uL (0.0-0.7); EOSINOPHILS % (AUTO) 1.8 % (0.0-7.0); HEMATOCRIT 30.4 % (36.7-47.1); HEMOGLOBIN 10.6 g/dL (12.5-16.3); LYMPHOCYTES # (AUTO) 1.8 K/uL (20.0-40.0); LYMPHOCYTES % (AUTO) 22.4 % (20.5-51.5); MEAN CORPUSCULAR HEMOGLOBIN 31.3 uug (23.8-33.4); MEAN CORPUSCULAR HGB CONC 35 g/dL (32.5-36.3); MONOCYTES # (AUTO) 0.8 K/uL (2.0-10.0); MONOCYTES % (AUTO) 9.3 % (0.0-11.0); NEUTROPHILS # (AUTO) 5.3 K/uL (1.8-8.9); NEUTROPHILS % (AUTO) 64.7 % (38.5-71.5); PLATELET COUNT (AUTO) 513 K/uL (152-348); RED BLOOD CELL COUNT(AUTO) 3.38 MIL/uL (4.06-5.63)
[2018-04-20 06:58] LABS: BILIRUBIN,TOTAL 0.4 mg/dL (0.2-1.0); CREATININE 7.3 mg/dL (0.6-1.3); MAGNESIUM 1.9 mg/dL (1.8-2.4); PHOSPHOROUS 7.5 mg/dL (2.5-4.9); POTASSIUM 5.1 mmol/L (3.5-5.1); TOTAL PROTEIN, SERUM 7.2 g/dL (6.4-8.2)
[2018-04-20 07:09] LABS: WHITE BLOOD COUNT (AUTO) 8.2 K/uL (3.6-10.2)
[2018-04-20 07:14] LABS: THYROID STIMULATING HORMONE 0.487 mIU/mL (0.358-3.740)
--- NOTE | 2018-04-20 07:43 | NUR ---
RECEIVED PT ASLEEP IN BED. NO SIGNS OF RESPIRATORY DISTRESS NOTED. SAFETY MEASURES INITIATED. KEPT CALL LIGHT WITHIN REACH. WILL CONTINUE TO MONITOR.
[2018-04-20] MEDS: ASPIRIN 81 MG TAB.CHEW PO SCH (09:01)
[2018-04-20] MEDS: FOLIC ACID/VITAMIN B COMP W-C TABLET PO SCH (09:01)
[2018-04-20] MEDS: BENAZEPRIL HCL 20 MG TABLET PO SCH ×2 (09:05→17:49)
[2018-04-20] MEDS: LABETALOL HCL 200 MG TABLET PO SCH ×2 (09:06→21:48)
[2018-04-20] MEDS: ESCITALOPRAM OXALATE 10 MG TABLET PO SCH (09:06)
[2018-04-20 11:10] VITALS: BP 154/97
[2018-04-20 15:10] VITALS: BP 154/92
--- NOTE | 2018-04-20 18:30 | NUR ---
Pt tolerated dialysis. PT had 2 liters out per dialysis nurse. Pt is in no acute distress.
[2018-04-20 19:00] VITALS: BP 111/70
--- NOTE | 2018-04-20 21:00 | NUR ---
PATIENT ALERT ORIENTED, NO SOB NO CHEST PAIN, WITH EPISODES OF ANXIETY, MEDICATED ORDERED, AND PATIENT REQUEST. WITH NO ADVERSE REACTION NOTED, R CHEST MIGUEL ANGEL CATH PATENT, DRESSING INTACT, NO BLEEDING NOTED.CONT TO MONITOR, KEPT COMFORTABLE.
[2018-04-20] MEDS: diphenhydrAMINE 50 MG CAPSULE PO SCH (21:47)
[2018-04-20] MEDS: DOCUSATE SODIUM 100 MG CAPSULE PO SCH (21:47)
[2018-04-21] VITALS: BP 143/89
[2018-04-21] MEDS: MORPHINE SULFATE 2 MG/1 ML DISP.SYRIN IV PRN ×2 (00:57→10:39)
[2018-04-21 04:00] VITALS: BP 144/96
[2018-04-21] MEDS: ALPRAZOLAM 0.5 MG TABLET PO PRN (04:11)
[2018-04-21] MEDS: PANTOPRAZOLE SODIUM 40 MG TABLET.DR PO SCH (06:00)
--- NOTE | 2018-04-21 06:16 | NUR ---
PATIENT SLEPT MOST OF THE THE NIGHT NO SOB NO CHEST PAIN NOTED, RYTHM SINUS RYTHM, WITH X2 PVC EPISODES BUT ASYMPTOMATIC, CONT ON PAIN MANAGEMENT, CONT TO MONITOR.
--- NOTE | 2018-04-21 08:30 | NUR ---
Patient education/teachings provided regarding blood pressure medications, monitoring blood pressure before taking medications. Patient verbalized understanding.
[2018-04-21 08:40] VITALS: BP 135/88
[2018-04-21] MEDS: LABETALOL HCL 200 MG TABLET PO SCH ×2 (08:57→21:03)
[2018-04-21] MEDS: ESCITALOPRAM OXALATE 10 MG TABLET PO SCH (08:57)
[2018-04-21] MEDS: FOLIC ACID/VITAMIN B COMP W-C TABLET PO SCH (08:57)
[2018-04-21] MEDS: ASPIRIN 81 MG TAB.CHEW PO SCH (08:57)
[2018-04-21] MEDS: BENAZEPRIL HCL 20 MG TABLET PO SCH ×2 (08:58→16:56)
[2018-04-21 11:50] VITALS: BP 135/83
[2018-04-21 15:21] VITALS: BP 127/81
--- NOTE | 2018-04-21 18:16 | NUR ---
Patient resting in bed, in no distress. Right upper chest dialysis access intact, dressing clean/dry, no bleeding noted. VS stable, tele monitor sinus rhythm with PVCs. Pt no c/o of chest pain or discomfort, no SOB. Safety measures in place.
--- NOTE | 2018-04-21 19:00 | NUR ---
RECEIVED IN BED ALERT ORIENTED, NO SOB NO CHEST PAIN, CONT ON MONITOR. RYTHM SINUS RYTHM, AT THIS TIME.
[2018-04-21 20:00] VITALS: BP 120/77
[2018-04-21] MEDS: diphenhydrAMINE 50 MG CAPSULE PO SCH (21:03)
[2018-04-21] MEDS: DOCUSATE SODIUM 100 MG CAPSULE PO SCH (21:03)
[2018-04-22] VITALS: BP 136/89
[2018-04-22] MEDS: ALPRAZOLAM 0.5 MG TABLET PO PRN (02:49)
[2018-04-22 04:00] VITALS: BP 140/92
[2018-04-22] MEDS: PANTOPRAZOLE SODIUM 40 MG TABLET.DR PO SCH (06:13)
--- NOTE | 2018-04-22 06:22 | NUR ---
PATIENT SLEPT MOST OF THE NIGHT, NO SOB NO CHEST PAIN NOTED, CONT ON OXYGEN 1.5 LITER NC, FOR ASSIST, GIVEN ANXIETY MEDS X1 WITH HELP. CONT TO MONITOR.
--- NOTE | 2018-04-22 06:24 | NUR ---
PATIENT HAS EPISODES OF V TACH, BUT UNSUSTAINED, PATIENT STATED HE HAVING ANXIETY.
[2018-04-22] MEDS: ESCITALOPRAM OXALATE 10 MG TABLET PO SCH (08:23)
[2018-04-22] MEDS: FOLIC ACID/VITAMIN B COMP W-C TABLET PO SCH (08:23)
[2018-04-22] MEDS: ASPIRIN 81 MG TAB.CHEW PO SCH (08:23)
[2018-04-22] MEDS: BENAZEPRIL HCL 20 MG TABLET PO SCH ×2 (08:24→17:00)
[2018-04-22] MEDS: MORPHINE SULFATE 2 MG/1 ML DISP.SYRIN IV PRN ×3 (08:29→22:13)
[2018-04-22] MEDS: LABETALOL HCL 200 MG TABLET PO SCH ×2 (09:00→23:13)
--- NOTE | 2018-04-22 09:53 | NUR ---
SCRAP YARD WORKER ON THE UNIT. PATIENT SCHEDULED TO HAVE DIALYSIS BEFORE NOON.
--- NOTE | 2018-04-22 10:00 | NUR ---
NON ADMIN BP MED, PT SCHEDULED TO HAVE DIALYSIS.
[2018-04-22 11:14] VITALS: BP 127/88
[2018-04-22] MEDS ORDERED: ALTEPLASE 2 MG VIAL XX ONE ×2 (12:00)
--- NOTE | 2018-04-22 13:30 | NUR ---
DIALYSIS PROCEDURE DONE, 2L DIALYZED, PT TOLERATED PROCEDURE WELL, IN NO DISTRESS., NO SOB, NO CHEST PAIN.
[2018-04-22 15:14] VITALS: BP 128/90
--- NOTE | 2018-04-22 17:15 | NUR ---
BP MEDS HELD DUE TO DECREASED BP.
--- NOTE | 2018-04-22 19:00 | NUR ---
RECEIVED PATIENT IN BED, ALERT ORIENTED, NO SOB NO CHEST PAIN, CONT ON PAIN MANAGEMENT.
[2018-04-22 20:00] VITALS: BP 113/79
--- NOTE | 2018-04-22 22:00 | NUR ---
PATIENT REFUSED TO TAKE 2100 AND 2200 MEDS AT THIS TIME.
[2018-04-22] MEDS: DOCUSATE SODIUM 100 MG CAPSULE PO SCH (23:13)
[2018-04-22] MEDS: diphenhydrAMINE 50 MG CAPSULE PO SCH (23:13)
[2018-04-23 04:36] VITALS: BP 130/75
[2018-04-23] MEDS: MORPHINE SULFATE 2 MG/1 ML DISP.SYRIN IV PRN (05:39)
[2018-04-23] MEDS: PANTOPRAZOLE SODIUM 40 MG TABLET.DR PO SCH (06:24)
--- NOTE | 2018-04-23 06:32 | NUR ---
PATIENT SLEPT MOST OF THE NIGHT, CONT ON PAIN MANGEMENT, L CHEST CATH DRESSING INTACT, NO BLEEDING NOTED, CONT TO MONITOR.
--- NOTE | 2018-04-23 07:30 | NUR ---
Rec'd pt in bed asleep, arousable to name. On observation for chest pain and noncompliance with HD treatments. Denies chest pain. Receiving dialysis treatment at this time. (R) chest Jason cath in place and patent. Dialysis nurse at bedside. Pt without s/s of acute distress noted. Pt A&O x4, Occitan speaking. Able to communicate needs. All safety precautions in place. Call light within reach. Will monitor for change.
[2018-04-23 08:00] VITALS: BP 116/79
[2018-04-23] MEDS: FOLIC ACID/VITAMIN B COMP W-C TABLET PO SCH (09:01)
[2018-04-23] MEDS: ASPIRIN 81 MG TAB.CHEW PO SCH (09:01)
[2018-04-23] MEDS: LABETALOL HCL 200 MG TABLET PO SCH (09:01)
[2018-04-23 09:02] VITALS: BP 116/79
[2018-04-23] MEDS: ESCITALOPRAM OXALATE 10 MG TABLET PO SCH (09:02)
[2018-04-23] MEDS: BENAZEPRIL HCL 20 MG TABLET PO SCH (09:02)
--- NOTE | 2018-04-23 09:20 | NUR ---
Pt seen and examined by Dr. Awad.
--- NOTE | 2018-04-23 09:26 | NUR ---
Pt with order for discharge to home. Pt made aware.
--- NOTE | 2018-04-23 10:47 | NUR ---
Assisted pt to lobby via w/c. Pt being picked up by his daughter. Discharge summary and instructions given to pt. Answered all questions. Pt left with all his belongings/valuables. ID band removed. Right chest Jason Catheter in place, dressing C/D/I. Denies pain at this time. No s/s of acute distress noted.
== END 2018-04-23 10:50 | disposition home or self-care (01) | DRG 199 ==
LOC: ER 10:14 → TELE 12:00 → MED 04-22 17:32
PROVIDERS: ADMIT Internal Medicine; ATTEND Internal Medicine
PROC: 5A1D70Z Performance of Urinary Filtration, Intermittent, Less than 6 Hours Per Day (ICD-10-PCS; principal; 2018-04-19)
DX: I16.0 Hypertensive urgency (principal); N18.6 End stage renal disease; R65.10 Systemic inflammatory response syndrome (SIRS) of non-infectious origin without acute organ dysfunction; E87.5 Hyperkalemia; E87.70 Fluid overload, unspecified; I12.0 Hypertensive chronic kidney disease with stage 5 chronic kidney disease or end stage renal disease; Z99.2 Dependence on renal dialysis; Z91.15 Patient's noncompliance with renal dialysis; E66.9 Obesity, unspecified; Z68.29 Body mass index [BMI] 29.0-29.9, adult; Z71.3 Dietary counseling and surveillance; D63.8 Anemia in other chronic diseases classified elsewhere; E78.5 Hyperlipidemia, unspecified; F32.9 Major depressive disorder, single episode, unspecified; Q78.9 Osteochondrodysplasia, unspecified; R07.9 Chest pain, unspecified; Z79.899 Other long term (current) drug therapy; Z79.82 Long term (current) use of aspirin
CPT/HCPCS: 36415; 70030-TC; 71045; 76700; 83735; 84100; 84443; 85025; 85730; 87040; 90937; 93005; 97165; 97530; A4663; J2270; J2405; J2997; J3490; Q0163

== ENCOUNTER 2021-09-28 20:01 | Emergency (ER) | payer MEDICAID, OTHER ==
[~2021-09-28 20:01] MED LIST changes: +HYDR-4354 PO; -HYDR-548 PO; -PANT40TA4 PO; +PANT40TA49 PO
--- NOTE | 2021-09-28 23:29 | NUR ---
Pt not in waiting room.
== END 2021-09-28 23:30 | disposition left against medical advice (07) ==
LOC: ER 20:03
DX: Z53.21 Procedure and treatment not carried out due to patient leaving prior to being seen by health care provider (principal)